=== PATIENT | male | born 1970 | race Caucasian/White ===

== ENCOUNTER 2018-12-17 15:16 | Inpatient (IN) | payer MEDICAID ==
[~2018-12-17] VITALS: Ht 177.8 cm; Wt 128.8 kg
[2018-12-17] MEDS ORDERED: HYDROCODONE/ACETAMINOPHEN 5/325MG TABLET PO ONE (15:45)
[2018-12-17] MEDS ORDERED: NITROGLYCERIN OINT 1GM/INCH UDPKT TD ONE (15:45)
[2018-12-17 16:28] LABS: BASOPHILS % 1.1 % (0.0-2.0); EOSINOPHILS % 3.3 % (0.0-5.0); HEMATOCRIT. 48.7 % (42.0-52.0); HEMOGLOBIN. 16.7 g/dL (14.0-18.0); LYMPHOCYTES % 17.4 % (20.0-50.0); MEAN CORPUSCULAR HEMOGLOBIN 33.7 pg (28.0-32.0); MEAN CORPUSCULAR VOLUME 98.6 fL (80.0-94.0); MEAN PLATELET VOLUME 9.6 fl (7.4-10.4); MONOCYTES % 8.3 % (2.0-8.0); NEUTROPHILS % 69.9 % (40.0-76.0); PLATELET 177 x1000/uL (130-400); RED BLOOD CELL COUNT 4.94 mill/uL (4.7-6.1); RED CELL DISTRIBUTION WIDTH 14.6 % (11.6-14.6)
[2018-12-17 16:33] LABS: *AMPHETAMINES SCREEN URINE NEGATIVE (NEGATIVE); *BARBITURATES SCREEN URINE NEGATIVE (NEGATIVE); *BENZODIAZEPINES SCREEN URINE NEGATIVE (NEGATIVE); *COCAINE SCREEN URINE NEGATIVE (NEGATIVE); CANNABINOID URINE SCREEN NEGATIVE (NEGATIVE); CHLORIDE 99 mEq/L (98-107); METHADONE URINE SCREEN NEGATIVE (NEGATIVE); OPIATES URINE SCREEN NEGATIVE (NEGATIVE); PHENCYCLIDINE URINE SCREEN NEGATIVE (NEGATIVE)
[2018-12-17 16:38] LABS: ETHANOL BLOOD < 10 mg/dL
[2018-12-17] MEDS ORDERED: INSULIN REGULAR (HUMULIN R) 300UNITS/3ML IV ONE (17:00)
[2018-12-17] MEDS ORDERED: DOCUSATE SODIUM 100MG CAPSULE PO PRN (17:45)
[2018-12-17] MEDS ORDERED: DEXTROSE 50% WATER 50ML SYRINGE IV PRN (17:45)
[2018-12-17] MEDS ORDERED: CLONIDINE 0.1MG TABLET PO PRN (17:45)
[2018-12-17] MEDS ORDERED: GUAIFENESIN 200MG/10ML SUGAR FREE UDC PO PRN (17:45)
[2018-12-17] MEDS ORDERED: IPRATROPIUM/ALBUTEROL 0.5-3(2.5)MG/3ML NEB HHN PRN (17:45)
[2018-12-17] MEDS ORDERED: LORAZEPAM 2MG/ML CPJ IV PRN (17:45)
[2018-12-17] MEDS ORDERED: HYDRALAZINE 20MG/ML VIAL IV PRN (17:45)
[2018-12-17] MEDS ORDERED: DIPHENHYDRAMINE 50MG/ML VIAL IV PRN (17:45)
[2018-12-17] MEDS ORDERED: MAGNESIUM/ALUMINUM HYDROXIDE/SIMETHICONE 30ML UDC PO PRN (17:45)
[2018-12-17] MEDS ORDERED: ONDANSETRON HCL 4MG/2ML INJ IV PRN (17:45)
[2018-12-17] MEDS: INSULIN LISPRO 100 UNITS/ML SUBCUT SCH ×2 (21:00→22:39)
[2018-12-17] MEDS ORDERED: NA PHOS,M-B/NA PHOS,DI-BA ENEMA 118ML PR PRN (21:00)
[2018-12-17] MEDS: BLOOD SUGAR DIAGNOSTIC STRIP TEST SCH (21:00)
[2018-12-17 21:48] VITALS: BP 116/55
[2018-12-17 22:00] VITALS: BP 116/55
[2018-12-17] MEDS ORDERED: METO100T16 PO (22:11)
[2018-12-17] MEDS ORDERED: AMLO10TA4 PO (22:11)
[2018-12-17] MEDS ORDERED: ALLO300T2 PO (22:12)
[2018-12-17] MEDS ORDERED: KEPP250 PO (22:14)
[2018-12-17] MEDS ORDERED: ASPI-986 PO (22:14)
[2018-12-17] MEDS ORDERED: GABA-290 PO (22:14)
[2018-12-17] MEDS ORDERED: TAMS-11 PO (22:14)
[2018-12-17] MEDS ORDERED: INSLIS SUBCUT (22:16)
[2018-12-17] MEDS ORDERED: LANTUSUD SUBCUT (22:16)
[2018-12-17] MEDS ORDERED: ENOXAPARIN 40MG/0.4ML SYR SUBCUT SCH (23:00)
[2018-12-17] MEDS ORDERED: GLIP5TAB12 PO (23:35)
[2018-12-17] MEDS ORDERED: LIP40 PO (23:35)
[2018-12-17] MEDS ORDERED: KV10 PO (23:35)
[2018-12-17] MEDS ORDERED: EZET10TA13 PO (23:35)
[2018-12-17] MEDS ORDERED: TORS100T11 PO (23:35)
[2018-12-17] MEDS ORDERED: CITA10SO PO (23:35)
[2018-12-17] MEDS ORDERED: TRAZ-251 PO (23:35)
[2018-12-17] MEDS ORDERED: FAMO-135 PO (23:35)
[2018-12-17] MEDS ORDERED: [UNRECOGNIZED DRUG - OTHER] PO (23:35)
[2018-12-18 00:29] LABS: CREATINE KINASE 404 IU/L (39-308)
[2018-12-18 00:32] LABS: CREATINE KINASE MB FRACTION 4.5 ng/mL (0.5-3.6)
[2018-12-18] MEDS: ACETAMINOPHEN 325MG TABLET PO PRN ×2 (03:53→23:12)
[2018-12-18 04:50] VITALS: BP 97/53
[2018-12-18] MEDS: BLOOD SUGAR DIAGNOSTIC STRIP TEST SCH ×4 (07:17→22:52)
[2018-12-18 07:46] LABS: EOSINOPHILS % 4.3 % (0.0-5.0); HEMATOCRIT. 46.6 % (42.0-52.0); LYMPHOCYTES % 29.8 % (20.0-50.0); MEAN CORPUSCULAR HEMOGLOBIN 34.2 pg (28.0-32.0); MEAN CORPUSCULAR VOLUME 99.4 fL (80.0-94.0); MEAN PLATELET VOLUME 9.9 fl (7.4-10.4); MONOCYTES % 9.9 % (2.0-8.0); PLATELET 166 x1000/uL (130-400); RED BLOOD CELL COUNT 4.69 mill/uL (4.7-6.1); RED CELL DISTRIBUTION WIDTH 14.1 % (11.6-14.6)
[2018-12-18 07:47] LABS: CHLORIDE 103 mEq/L (98-107)
[2018-12-18 07:56] LABS: CREATINE KINASE MB FRACTION 3.6 ng/mL (0.5-3.6)
[2018-12-18 07:59] LABS: HDL CHOLESTEROL 27 mg/dL (40-59); T4 FREE 1.17 ng/dL (0.76-1.46)
[2018-12-18 08:00] VITALS: BP 105/59
[2018-12-18 08:00] LABS: LDL CHOLESTEROL 33 mg/dL (5-100)
[2018-12-18 08:03] LABS: CREATINE KINASE 290 IU/L (39-308)
[2018-12-18] MEDS ORDERED: ENOXAPARIN 30MG/0.3ML SYR SUBCUT SCH (09:00)
[2018-12-18] MEDS: INSULIN LISPRO 100 UNITS/ML SUBCUT SCH ×4 (09:16→23:20)
[2018-12-18 09:33] LABS: T4 FREE 1.2 ng/dL (0.76-1.46)
[2018-12-18] MEDS ORDERED: POTASSIUM CHLORIDE 20MEQ TABLET SR PO NR (09:45)
[2018-12-18 12:00] VITALS: BP 110/61
[2018-12-18] MEDS: SODIUM CHLORIDE 0.9% INJ 3ML FLUSH IVF SCH ×3 (14:00→22:52)
[2018-12-18] MEDS ORDERED: IOHEXOL-350 100 ML BOTTLE ONE (15:00)
[2018-12-18 16:00] VITALS: BP 109/60
[2018-12-18 16:32] LABS: CREATINE KINASE 253 IU/L (39-308)
[2018-12-18 16:33] LABS: CREATINE KINASE MB FRACTION 2.7 ng/mL (0.5-3.6)
[2018-12-18 20:00] VITALS: BP 119/51
[2018-12-18] MEDS: ENOXAPARIN 40MG/0.4ML SYR SUBCUT SCH (22:52)
[2018-12-19] VITALS (7 sets, daily range): BP systolic 98–138; BP diastolic 56–112
[2018-12-19 01:59] LABS: CREATINE KINASE 203 IU/L (39-308)
[2018-12-19 02:00] LABS: CREATINE KINASE MB FRACTION 2.4 ng/mL (0.5-3.6)
[2018-12-19] MEDS: SODIUM CHLORIDE 0.9% INJ 3ML FLUSH IVF SCH ×3 (06:49→21:52)
[2018-12-19] MEDS: BLOOD SUGAR DIAGNOSTIC STRIP TEST SCH ×4 (06:49→21:00)
[2018-12-19] MEDS: INSULIN LISPRO 100 UNITS/ML SUBCUT SCH ×4 (08:42→21:47)
[2018-12-19] MEDS: ENOXAPARIN 40MG/0.4ML SYR SUBCUT SCH (08:42)
[2018-12-19] MEDS ORDERED: REGADENOSON 0.4 MG/5 ML IV ONE ×2 (09:45→12:04)
[2018-12-19 11:19] LABS: EOSINOPHILS % 3.2 % (0.0-5.0); HEMATOCRIT. 47.3 % (42.0-52.0); LYMPHOCYTES % 26.1 % (20.0-50.0); MEAN CORPUSCULAR HEMOGLOBIN 33.4 pg (28.0-32.0); MEAN CORPUSCULAR VOLUME 98.8 fL (80.0-94.0); MEAN PLATELET VOLUME 9.9 fl (7.4-10.4); NEUTROPHILS % 60.7 % (40.0-76.0); PLATELET 164 x1000/uL (130-400); RED BLOOD CELL COUNT 4.79 mill/uL (4.7-6.1); RED CELL DISTRIBUTION WIDTH 14.2 % (11.6-14.6)
[2018-12-19 11:24] LABS: CHLORIDE 104 mEq/L (98-107)
[2018-12-19 11:35] LABS: CREATINE KINASE 148 IU/L (39-308)
[2018-12-19 11:36] LABS: CREATINE KINASE MB FRACTION 2.5 ng/mL (0.5-3.6)
[2018-12-19] MEDS: ENOXAPARIN 30MG/0.3ML SYR SUBCUT SCH (21:48)
[2018-12-20] VITALS: BP 126/66
[2018-12-20 04:00] VITALS: BP 130/68
[2018-12-20] MEDS: SODIUM CHLORIDE 0.9% INJ 3ML FLUSH IVF SCH ×3 (05:30→21:27)
[2018-12-20] MEDS: BLOOD SUGAR DIAGNOSTIC STRIP TEST SCH ×4 (07:40→21:33)
[2018-12-20 08:00] VITALS: BP 104/54
[2018-12-20] MEDS: INSULIN LISPRO 100 UNITS/ML SUBCUT SCH ×4 (08:46→21:40)
[2018-12-20] MEDS: ENOXAPARIN 30MG/0.3ML SYR SUBCUT SCH ×2 (08:47→21:39)
[2018-12-20 12:00] VITALS: BP 106/59
[2018-12-20 16:00] VITALS: BP 134/66
[2018-12-20] MEDS: TAMSULOSIN HCL 0.4MG SR CAPSULE PO SCH (18:39)
[2018-12-20] MEDS: GABAPENTIN 300MG CAPSULE PO SCH (18:39)
[2018-12-20] MEDS: CITALOPRAM HYDROBROMIDE 10MG TABLET PO SCH (18:40)
[2018-12-20] MEDS: LEVETIRACETAM 250MG TABLET PO SCH (18:40)
[2018-12-20] MEDS: ALLOPURINOL 300 MG TABLET PO SCH (18:40)
[2018-12-20] MEDS: FAMOTIDINE 20MG TABLET PO SCH (18:40)
[2018-12-20 20:00] VITALS: BP 130/67
[2018-12-20] MEDS: ATORVASTATIN CALCIUM 40MG TABLET PO SCH (21:26)
[2018-12-21] VITALS: BP 116/63
[2018-12-21 04:00] VITALS: BP 104/57
[2018-12-21] MEDS: SODIUM CHLORIDE 0.9% INJ 3ML FLUSH IVF SCH ×3 (05:50→21:41)
[2018-12-21] MEDS: BLOOD SUGAR DIAGNOSTIC STRIP TEST SCH ×4 (05:51→21:41)
[2018-12-21 08:00] VITALS: BP 119/65
[2018-12-21] MEDS: ENOXAPARIN 30MG/0.3ML SYR SUBCUT SCH ×2 (08:37→21:40)
[2018-12-21] MEDS: CITALOPRAM HYDROBROMIDE 10MG TABLET PO SCH (08:37)
[2018-12-21] MEDS: GABAPENTIN 300MG CAPSULE PO SCH ×3 (08:37→17:47)
[2018-12-21] MEDS: LEVETIRACETAM 250MG TABLET PO SCH ×2 (08:37→17:47)
[2018-12-21] MEDS: ASPIRIN 325MG EC TABLET PO SCH (08:37)
[2018-12-21] MEDS: FAMOTIDINE 20MG TABLET PO SCH ×2 (08:37→17:47)
[2018-12-21] MEDS: TAMSULOSIN HCL 0.4MG SR CAPSULE PO SCH (08:37)
[2018-12-21] MEDS: ALLOPURINOL 300 MG TABLET PO SCH (08:38)
[2018-12-21] MEDS: AMLODIPINE 10MG TABLET PO SCH (08:38)
[2018-12-21] MEDS: INSULIN LISPRO 100 UNITS/ML SUBCUT SCH ×4 (08:46→21:40)
[2018-12-21 12:00] VITALS: BP 106/52
[2018-12-21 16:00] VITALS: BP 121/63
[2018-12-21] MEDS: GLIPIZIDE 5MG TABLET PO SCH (17:47)
[2018-12-21 20:00] VITALS: BP 114/67
[2018-12-21] MEDS: ATORVASTATIN CALCIUM 40MG TABLET PO SCH (21:38)
[2018-12-22] VITALS: BP 126/88
[2018-12-22] MEDS: ACETAMINOPHEN 325MG TABLET PO PRN (02:02)
[2018-12-22] MEDS: BLOOD SUGAR DIAGNOSTIC STRIP TEST SCH ×4 (05:58→21:00)
[2018-12-22 08:00] VITALS: BP 107/71
[2018-12-22] MEDS: INSULIN LISPRO 100 UNITS/ML SUBCUT SCH ×4 (08:10→21:58)
[2018-12-22] MEDS: LEVETIRACETAM 250MG TABLET PO SCH ×2 (08:36→18:09)
[2018-12-22] MEDS: TAMSULOSIN HCL 0.4MG SR CAPSULE PO SCH (08:36)
[2018-12-22] MEDS: GABAPENTIN 300MG CAPSULE PO SCH ×3 (08:36→18:09)
[2018-12-22] MEDS: ALLOPURINOL 300 MG TABLET PO SCH (08:36)
[2018-12-22] MEDS: FAMOTIDINE 20MG TABLET PO SCH ×2 (08:36→18:09)
[2018-12-22] MEDS: AMLODIPINE 10MG TABLET PO SCH (08:36)
[2018-12-22] MEDS: GLIPIZIDE 5MG TABLET PO SCH ×2 (08:36→18:09)
[2018-12-22] MEDS: ASPIRIN 325MG EC TABLET PO SCH (08:36)
[2018-12-22] MEDS: CITALOPRAM HYDROBROMIDE 10MG TABLET PO SCH (08:36)
[2018-12-22] MEDS: ENOXAPARIN 30MG/0.3ML SYR SUBCUT SCH ×2 (08:37→21:57)
[2018-12-22 11:40] LABS: BASOPHILS % 1.1 % (0.0-2.0); CHLORIDE 107 mEq/L (98-107); EOSINOPHILS % 4.6 % (0.0-5.0); HEMATOCRIT. 48.2 % (42.0-52.0); HEMOGLOBIN. 16.3 g/dL (14.0-18.0); LYMPHOCYTES % 26.2 % (20.0-50.0); MEAN CORPUSCULAR HEMOGLOBIN 33.6 pg (28.0-32.0); MEAN CORPUSCULAR VOLUME 99.2 fL (80.0-94.0); NEUTROPHILS % 59.1 % (40.0-76.0); PLATELET 174 x1000/uL (130-400); RED BLOOD CELL COUNT 4.86 mill/uL (4.7-6.1); RED CELL DISTRIBUTION WIDTH 14.2 % (11.6-14.6)
[2018-12-22] MEDS: SODIUM CHLORIDE 0.9% INJ 3ML FLUSH IVF SCH (12:50)
[2018-12-22 16:00] VITALS: BP 100/67
[2018-12-22 20:00] VITALS: BP 128/83
[2018-12-22] MEDS: ATORVASTATIN CALCIUM 40MG TABLET PO SCH (21:56)
[2018-12-23] VITALS: BP 113/67
[2018-12-23] MEDS: SODIUM CHLORIDE 0.9% INJ 3ML FLUSH IVF SCH (00:47)
[2018-12-23 02:00] VITALS: BP 115/82
== END 2018-12-23 04:30 | disposition home or self-care (01) | DRG 243 ==
LOC: ER 15:16 → 7WST 16:16 → EDBEDREQ 16:24 → ENRESERV 20:07
PROVIDERS: ADMIT Internal Medicine; ATTEND Internal Medicine
DX: K21.9 Gastro-esophageal reflux disease without esophagitis (principal); N17.0 Acute kidney failure with tubular necrosis; I12.9 Hypertensive chronic kidney disease with stage 1 through stage 4 chronic kidney disease, or unspecified chronic kidney disease; R07.9 Chest pain, unspecified; I25.10 Atherosclerotic heart disease of native coronary artery without angina pectoris; E11.22 Type 2 diabetes mellitus with diabetic chronic kidney disease; E11.65 Type 2 diabetes mellitus with hyperglycemia; E78.5 Hyperlipidemia, unspecified; E87.1 Hypo-osmolality and hyponatremia; E87.6 Hypokalemia; J45.909 Unspecified asthma, uncomplicated; M10.9 Gout, unspecified; F32.9 Major depressive disorder, single episode, unspecified; G40.909 Epilepsy, unspecified, not intractable, without status epilepticus; J44.9 Chronic obstructive pulmonary disease, unspecified; N18.3 Chronic kidney disease, stage 3 (moderate); N40.0 Benign prostatic hyperplasia without lower urinary tract symptoms; Z86.79 Personal history of other diseases of the circulatory system; Z79.4 Long term (current) use of insulin; Z79.82 Long term (current) use of aspirin; Z79.899 Other long term (current) drug therapy; Z88.6 Allergy status to analgesic agent
CPT/HCPCS: 36415; 71045; 71275; 76770; 78452; 80048; 80061; 80305; 80320; 82550; 82553; 82962; 83036; 83880; 84439; 84443; 84484; 85379; 93005; 93017; 93306; 99285; A9500; J1200; J1650; J1815; J2785; J7040; Q9967; G0480